=== PATIENT | male | born 1995 | race Caucasian/White ===

== ENCOUNTER 2023-05-03 10:55 | Emergency (ER) | payer BC ==
[~2023-05-03] VITALS: Ht 185.4 cm; Wt 77.6 kg
[2023-05-03 11:06] VITALS: BP 125/92
[2023-05-03] MEDS ORDERED: OXYC-145 PO (13:58)
== END 2023-05-03 14:11 | disposition home or self-care (01) ==
LOC: ER 10:57
DX: S92.352A Displaced fracture of fifth metatarsal bone, left foot, initial encounter for closed fracture (principal); X50.1XXA Overexertion from prolonged static or awkward postures, initial encounter; Y93.89 Activity, other specified; Y92.89 Other specified places as the place of occurrence of the external cause; Y99.8 Other external cause status
CPT/HCPCS: 29515; 73610; 73630; 99284; A6446; A6449